=== PATIENT | female | born 1950 | race Caucasian/White ===

== ENCOUNTER 2023-04-27 08:32 | Day surgery (SDC) | payer OTHER ==
[2023-04-27] VITALS (17 sets, daily range): BP systolic 89–134; BP diastolic 50–74
[~2023-04-27] VITALS: Ht 157.5 cm; Wt 81.3 kg
[2023-04-27] MEDS ORDERED: ELIQUIS5 M2 PO (09:21)
[2023-04-27] MEDS ORDERED: CARVEDILOL25 M9 PO (10:09)
[2023-04-27] MEDS ORDERED: SYNTHROID50 MC1 PO (10:10)
[2023-04-27] MEDS ORDERED: SPIRONOLACTONE25 MG PO (10:10)
[2023-04-27] MEDS ORDERED: SOAANZ20 M3 PO (10:11)
[2023-04-27] MEDS ORDERED: Amiodarone HCl200 MG PO (10:12)
[2023-04-27] MEDS ORDERED: LOSARTAN POTASS25 M2 PO (10:13)
--- NOTE | 2023-04-27 11:11 | NUR ---
History, Chart, Medications and Allergies reviewed before start of procedure. Pre-Op teaching done. Pt verbalizes understanding. Patient confirms NPO status and agrees with scheduled surgery. Patient reports completing Chlorhexadine shower X2 prior to admission to hospital. Surgical site prepped with 2% Chlorhexidine cloth wipe. Lungs clear T/O to Auscultation. Patient States Post-Procedure ride home has been arranged.
--- NOTE | 2023-04-27 11:57 | NUR ---
04/27/23 1157 Katya Warren SPINAL NERVE BLOCK COMPLETED IN THE OR BEFORE INTUBATION BY DR. PANG PT TOLERATED WELL.
--- NOTE | 2023-04-27 18:42 | NUR ---
SHIFT SUMMARY S/P L TKA, DRESSING CDI, POLAR JOSE ON. PT A&OX4, VSS/RA, N&V TREATED WITH ZOFRAN, DENIES PAIN, VOIDING, AMB 1 PP MOD ASSIST WITH FWW/GB, AT BEDSIDE. WILL REPORT TO ONCOMING NOC RN.
[2023-04-28 00:21] VITALS: BP 104/58
[2023-04-28 02:48] VITALS: BP 120/61
--- NOTE | 2023-04-28 04:24 | NUR ---
SHIFT SUMMARY POD1 L TKA PT A&O X4, BREANA WRAP TO L KNEE C/D/I. PT REPORTED DIZZINESS AT START OF SHIFT, ALONG WITH NAUSEA. MEDICATED PER EMAR. DENIES ANY PAIN. 2 PERSON ASST WITH FWW BECAUSE OF DIZZINESS. PT ABLE TO SLEEP T/O NIGHT. TOLERATING PO INTAKE. VSS. NO OTHER CONCERNS AT THIS TIME. PLAN FOR DISCHARGE TODAY. CALL LIGHT WITHIN REACH.
[2023-04-28 04:42] LABS: Bun/Creatinine Ratio 16.6 (12.0-20.0); Calcium, Blood 8.6 mg/dL (8.5-10.1); Creatinine, Blood 1.57 mg/dL (0.40-1.00); Potassium, Blood 4.4 mmol/L (3.5-5.5)
[2023-04-28 06:50] LABS: BASOPHILS ABSOLUTE AUTO 0.06 K/mm3 (0.00-0.23); BASOPHILS PERCENT AUTO 1 % (0-2); EOSINOPHILS ABSOLUTE AUTO 0.08 K/mm3 (0.00-0.68); EOSINOPHILS PERCENT AUTO 1 % (0-6); Hematocrit 35.2 % (33.0-51.0); Hemoglobin 11.4 g/dL (11.5-16.0); IMMATURE GRAN ABSOLUTE AUTO 0.05 K/mm3 (0.00-0.10); IMMATURE GRAN PERCENT AUTO 0 % (0-1); LYMPHOCYTES ABSOLUTE AUTO 0.89 K/mm3 (0.84-5.20); LYMPHOCYTES PERCENT AUTO 7 % (21-46); MONOCYTES ABSOLUTE AUTO 1.18 K/mm3 (0.16-1.47); MONOCYTES PERCENT AUTO 9 % (4-13); Mean Corpuscular HGB 31.6 pg (26.0-34.0); Mean Corpuscular HGB Conc 32.4 g/dL (31.5-36.5); Mean Corpuscular Volume 98 fL (80-100); Mean Platelet Volume 11.9 fL (9.1-12.4); NEUTROPHILS ABSOLUTE AUTO 10.32 K/mm3 (1.96-9.15); NEUTROPHILS PERCENT AUTO 82 % (41-73); Platelet Count 197 K/mm3 (150-400); RDW Standard Deviation 43.7 fL (35.1-46.3); Red Blood Cell Count 3.61 M/mm3 (3.80-5.20); White Blood Cell Count 12.58 K/mm3 (4.00-11.30)
[2023-04-28 08:03] VITALS: BP 133/59
--- NOTE | 2023-04-28 09:30 | NUR ---
DISCHARGE SUMMARY PT A&OX4, VSS/RA, LATISHA PO, VOIDING, AMB SBA FWW GB, PAIN MANAGED, IV DC'D. DC INS PROVIDED, PT AND REP UNDERSTANDING. LEFT FLOOR VIA WC WITH BIT GATHERER TO GO HOME WITH , WITH ALL PERSONAL POSSESSIONS INCLUDING DC PACKET; PT REP HAVING PAIN MEDS AND ABX SCRIPTS FILLED AT HOME AND UNDERSTANDS PER SURGEON TO RESTART BLOOD THINNER TONIGHT.
== END 2023-04-28 10:01 | disposition home or self-care (01) ==
LOC: ORSCMMR 08:32 → ORD 11:15 → ORSCMMR 11:15 → SURS 14:21 → ORSCMMR 04-28 10:01
PROVIDERS: Orthopaedic Surgery
PROC: 0SRD0J9 Replacement of Left Knee Joint with Synthetic Substitute, Cemented, Open Approach (ICD-10-PCS; principal; 2023-04-27 11:15)
DX: M17.0 Bilateral primary osteoarthritis of knee (principal); I48.91 Unspecified atrial fibrillation; Z79.01 Long term (current) use of anticoagulants; Z79.899 Other long term (current) drug therapy; Z87.891 Personal history of nicotine dependence
CPT/HCPCS: 36415; 73560-LT; 80048; 83735; 85025; 97110; 97116; 97162; A9270; C1713; C1776; J0171; J0690; J0735; J0780; J1885; J2250; J2371; J2405; J2704; J2795; J3370; J7120

== ENCOUNTER 2023-08-24 07:39 | Day surgery (SDC) | payer OTHER ==
[~2023-08-24] VITALS: Ht 157.5 cm; Wt 76.6 kg
[2023-08-24] VITALS (16 sets, daily range): BP systolic 122–158; BP diastolic 66–86
[~2023-08-24 07:39] MED LIST: AMLO5 PO; Amiodarone HCl200 MG PO; CARVEDILOL25 M9 PO; Carvedilol12.5 MG PO; ELIQUIS5 M2 PO; LEVOTHYROXINE13 MCG; LOSARTAN POTASS25 M2 PO; SOAANZ20 M3 PO; SPIR25 PO; SPIRONOLACTONE25 MG PO; SYNTHROID50 MC1 PO; TORS10 PO
--- NOTE | 2023-08-24 09:41 | NUR ---
History, Chart, Medications and Allergies reviewed before start of procedure. Ambulatory in Day Surgery. Pre-Op teaching done. Pt verbalizes understanding. Patient confirms NPO status and agrees with scheduled surgery. Patient reports completing Chlorhexadine shower X2 prior to admission to hospital. Surgical site prepped with 2% Chlorhexidine cloth wipe. Lungs clear T/O to Auscultation. Patient States Post-Procedure ride home has been arranged.
--- NOTE | 2023-08-24 14:01 | NUR ---
ARRIVAL TO SURGICAL UNIT VIA HOSPITAL BED. ALERT & PLEASANT. ASSESSMENT CHARTED. SPINAL MANAGING PAIN & ABLE TO WIGGLE TOES & PUMP ANKLES BUT UNABLE TO LIFT LEGS. DENEIS N/V. SNACKS & DRINKS GIVEN.
--- NOTE | 2023-08-24 16:09 | NUR ---
PT WOKE UP TO GET READY FOR THERAPY & PT REPORTED SHE WAS TOO TIRED TO WORK w/ THERAPY.
--- NOTE | 2023-08-24 19:50 | NUR ---
SHIFT SUMMARY PT HAS BEEN VERY DROWSY THIS AFTERNOON. AWAKENS EASILY BUT DECLINES OOB. IS PLEASANT & KIND. NO VOID, BUT BLADDER SCAN LOW. PAIN WELL MANAGED.
[2023-08-25 00:07] VITALS: BP 178/85
[2023-08-25 04:51] VITALS: BP 147/82
[2023-08-25 05:30] LABS: BASOPHILS ABSOLUTE AUTO 0.03 K/mm3 (0.00-0.23); BASOPHILS PERCENT AUTO 0 % (0-2); EOSINOPHILS PERCENT AUTO 0 % (0-6); Hemoglobin 12.8 g/dL (11.5-16.0); IMMATURE GRAN ABSOLUTE AUTO 0.14 K/mm3 (0.00-0.10); IMMATURE GRAN PERCENT AUTO 1 % (0-1); LYMPHOCYTES ABSOLUTE AUTO 1.42 K/mm3 (0.84-5.20); LYMPHOCYTES PERCENT AUTO 7 % (21-46); MONOCYTES ABSOLUTE AUTO 1.33 K/mm3 (0.16-1.47); MONOCYTES PERCENT AUTO 7 % (4-13); Mean Corpuscular HGB 29.4 pg (26.0-34.0); Mean Corpuscular HGB Conc 32.8 g/dL (31.5-36.5); Mean Corpuscular Volume 90 fL (80-100); Mean Platelet Volume 10.9 fL (9.1-12.4); NEUTROPHILS ABSOLUTE AUTO 16.85 K/mm3 (1.96-9.15); NEUTROPHILS PERCENT AUTO 85 % (41-73); Platelet Count 288 K/mm3 (150-400); RDW Coefficient Variation 13.8 % (11.7-14.2); RDW Standard Deviation 45.1 fL (35.1-46.3); Red Blood Cell Count 4.35 M/mm3 (3.80-5.20); White Blood Cell Count 19.77 K/mm3 (4.00-11.30)
[2023-08-25 06:01] LABS: Bun/Creatinine Ratio 17.4 (12.0-20.0); Calcium, Blood 9.1 mg/dL (8.5-10.1); Creatinine, Blood 1.78 mg/dL (0.40-1.00); Magnesium, Blood 2.4 mg/dL (1.6-2.4); Potassium, Blood 4.6 mmol/L (3.5-5.5)
--- NOTE | 2023-08-25 06:37 | NUR ---
SHIFT SUMMARY POD1 R TKA. DRESSING IS C/D/I. VSS. PT SLEPT WELL T/O THE NIGHT. UNSUCCESSFUL AMBULATION TO BSC THIS AM TO ATTEMPT TO VOID, PT EXERIENCED DIZZINESS AND NAUSEA. 3P TRANSFER BACK TO BED FOR SAFETY. BLADER SCAN SHOWS ABOUT 300 THIS AM, IV FLUIDS INFUSED T/O THE NIGHT. MEDICATED FOR PAIN WITH SCHEDULED AND PRN'S WITH TOLLERABLE RESULTS. TOLLERATING PO INTAKE. PLAN FOR PT TO VOID TODAY AND WORK WITH PHYSICAL THERAPY.
[2023-08-25 07:24] VITALS: BP 137/70
--- NOTE | 2023-08-25 10:50 | NUR ---
DISCHARGE SUMMARY POD1 R TKA, A/OX4, VSS, TOLERATING PO, PAIN WELL MANAGED, VOIDING, AMBULATING, CLEARED THERAPY. DISCUSSED DISCHARGE INFORMATION INCLUDING HOME CARE, MEDICATIONS, AND FOLLOW UP APPPOINTMENTS. NO QUESTIONS AT THIS TIME. IV ACCESS REMOVED JUST PRIOR TO DISCHARGE, DRESSING CHANGED AT THE BEDSIDE BY ORTHO, ADDITIONAL AQUACELL DRESSINGS PROVIDED TO BE CHANGED DIRECTED. DRESSING C/D/I AT TIME OF DEPARTURE. ESCORTED OUT VIA WC TO PRIVATE AUTO TO GO HOME.
== END 2023-08-25 10:38 | disposition home or self-care (01) ==
LOC: ORSCMMR 07:39 → ORD 10:45 → SURS 13:55 → ORD 14:00 → ORSCMMR 08-25 10:38
PROVIDERS: Orthopaedic Surgery
PROC: 0SRC0J9 Replacement of Right Knee Joint with Synthetic Substitute, Cemented, Open Approach (ICD-10-PCS; principal; 2023-08-24 10:45)
DX: M17.11 Unilateral primary osteoarthritis, right knee (principal); Z96.652 Presence of left artificial knee joint; I48.91 Unspecified atrial fibrillation; Z79.01 Long term (current) use of anticoagulants; Z79.899 Other long term (current) drug therapy; Z87.891 Personal history of nicotine dependence
CPT/HCPCS: 36415; 73560-RT; 80048; 83735; 85025; 97110; 97116; 97162; A9270; C1713; C1776; J0171; J0690; J0735; J1170; J1885; J2405; J2704; J2795; J3010; J3370; J7120

== ENCOUNTER 2023-12-21 10:11 | Inpatient (IN) | payer OTHER ==
[~2023-12-21] VITALS: Ht 160 cm; Wt 76.7 kg
[2023-12-21] VITALS (10 sets, daily range): BP systolic 114–138; BP diastolic 53–82
[2023-12-21 11:08] LABS: BASOPHILS ABSOLUTE AUTO 0.06 K/mm3 (0.00-0.23); BASOPHILS PERCENT AUTO 1 % (0-2); EOSINOPHILS PERCENT AUTO 1 % (0-6); IMMATURE GRAN ABSOLUTE AUTO 0.04 K/mm3 (0.00-0.10); IMMATURE GRAN PERCENT AUTO 1 % (0-1); LYMPHOCYTES ABSOLUTE AUTO 1.37 K/mm3 (0.84-5.20); LYMPHOCYTES PERCENT AUTO 19 % (21-46); MONOCYTES ABSOLUTE AUTO 0.83 K/mm3 (0.16-1.47); MONOCYTES PERCENT AUTO 11 % (4-13); Mean Corpuscular HGB 20.5 pg (26.0-34.0); Mean Corpuscular HGB Conc 27.8 g/dL (31.5-36.5); Mean Corpuscular Volume 74 fL (80-100); Mean Platelet Volume 11.6 fL (9.1-12.4); NEUTROPHILS ABSOLUTE AUTO 4.94 K/mm3 (1.96-9.15); NEUTROPHILS PERCENT AUTO 67 % (41-73); Platelet Count 293 K/mm3 (150-400); RDW Coefficient Variation 19.4 % (11.7-14.2); RDW Standard Deviation 51.8 fL (35.1-46.3); White Blood Cell Count 7.34 K/mm3 (4.00-11.30)
[2023-12-21 11:18] LABS: Hematocrit 16.2 % (33.0-51.0); Hemoglobin 4.5 g/dL (11.5-16.0)
[2023-12-21 11:25] LABS: Albumin, Blood 3.3 g/dL (3.4-5.0); Albumin/Globulin Ratio 1.1 (0.8-1.8); Bilirubin, Total 0.4 mg/dL (0.1-1.0); Bun/Creatinine Ratio 19.7 (12.0-20.0); Creatinine, Blood 2.23 mg/dL (0.40-1.00); Globulin, Blood 3.1 g/dL (2.2-4.0); Potassium, Blood 4.4 mmol/L (3.5-5.5); Total Protein, Blood 6.4 g/dL (6.4-8.2)
[2023-12-21] MEDS ORDERED: NS 1,000 ML IV ONE (12:42)
[2023-12-21] MEDS ORDERED: Ondansetron 4 MG TAB PO PRN (14:30)
[2023-12-21] MEDS ORDERED: Acetaminophen 325 MG TABLET PO PRN (14:30)
[2023-12-21] MEDS ORDERED: Ondansetron HCl 2 MG / ML 2ML Vial IV PRN (14:35)
--- NOTE | 2023-12-21 19:50 | NUR ---
SHIFT SUMMARY- PT ADMITTED THROUGH THE ED. PT HGB WAS 4.5 AT THE TIME SHE WAS ADMITTED. 3 UNITS OF PRBC'S WERE ORDERED. PT WAS RUNNING THE SECOND UNIT AT THE TIME SHE ARRIVED ON MED FLOOR. BLOOD SLIP FOR THE THIRD UNIT WAS PASSED TO NIGHT RN AT THE TIME OF BEDSIDE REPORT WHEN THE PT SECOND UNIT COMPLETED. PT CRIES OUT "OH MIRA; HELP ME MIRA; MIAR" PT SPOUSE MIRA LEFT AFTER THE PT ARRIVED ON MEDICAL FLOOR AND THE PT STATED SHE WAS NOT ABLE TO GIVE HER Hx. PT IN BED, CALL LIGHT IN REACH NO S&S OF DISTRESS NOTED AT THE TIME OF BEDSIDE REPORT. PT SEEMS VERY ANXIOUS SPOUSE MIRA SAYS SHE "HAS BEEN VERY WHINEY, SINCE SHE GOT SICK LIKE THIS." REPORT COMPLETED WITH THE NIGHT RN CHAPITO.
[2023-12-21] MEDS ORDERED: NS 500 ML IV ONE (19:55)
[2023-12-21] MEDS ORDERED: NS 500 ML IV SCH (20:05)
[2023-12-22] VITALS (7 sets, daily range): BP systolic 127–162; BP diastolic 60–79
[2023-12-22 05:11] LABS: BASOPHILS ABSOLUTE AUTO 0.07 K/mm3 (0.00-0.23); BASOPHILS PERCENT AUTO 1 % (0-2); EOSINOPHILS ABSOLUTE AUTO 0.08 K/mm3 (0.00-0.68); EOSINOPHILS PERCENT AUTO 1 % (0-6); Hematocrit 25.4 % (33.0-51.0); Hemoglobin 7.8 g/dL (11.5-16.0); IMMATURE GRAN ABSOLUTE AUTO 0.13 K/mm3 (0.00-0.10); IMMATURE GRAN PERCENT AUTO 1 % (0-1); LYMPHOCYTES ABSOLUTE AUTO 1.08 K/mm3 (0.84-5.20); LYMPHOCYTES PERCENT AUTO 10 % (21-46); MONOCYTES ABSOLUTE AUTO 1.18 K/mm3 (0.16-1.47); MONOCYTES PERCENT AUTO 11 % (4-13); Mean Corpuscular HGB Conc 30.7 g/dL (31.5-36.5); Mean Corpuscular Volume 78 fL (80-100); Mean Platelet Volume 10.8 fL (9.1-12.4); NEUTROPHILS ABSOLUTE AUTO 8.72 K/mm3 (1.96-9.15); NEUTROPHILS PERCENT AUTO 77 % (41-73); Platelet Count 296 K/mm3 (150-400); RDW Coefficient Variation 20.1 % (11.7-14.2); RDW Standard Deviation 57.1 fL (35.1-46.3); Red Blood Cell Count 3.25 M/mm3 (3.80-5.20); White Blood Cell Count 11.26 K/mm3 (4.00-11.30)
[2023-12-22 05:51] LABS: Albumin, Blood 3.3 g/dL (3.4-5.0); Albumin/Globulin Ratio 1.1 (0.8-1.8); Bilirubin, Total 1.6 mg/dL (0.1-1.0); Bun/Creatinine Ratio 20.6 (12.0-20.0); Calcium, Blood 8.9 mg/dL (8.5-10.1); Creatinine, Blood 1.8 mg/dL (0.40-1.00); Globulin, Blood 3.1 g/dL (2.2-4.0); Magnesium, Blood 2.4 mg/dL (1.6-2.4); Potassium, Blood 3.9 mmol/L (3.5-5.5); Total Protein, Blood 6.4 g/dL (6.4-8.2)
--- NOTE | 2023-12-22 06:10 | NUR ---
SHIFT SUMMARY: Pt is admitted for severe anemia and is a full code. Alert and able to make needs known. ADLs have been one person but had not gotten out of bed this shift. States she has generalized pain but when offered something for it she declines. Was given 1u of blood to finish a total of 3u during this shift. No adverse reactions noted. Some nausea was stated towards the end of of shift but declined zofran. EMPLOYEE BENEFITS INSURANCE AGENT reported that SPO2 was down to 88 on RA. it was reported to an RN to which the RN placed her on 1lpm via NC which brought the SPO@ up to 91-92 and maintained. RN informed this LN of changes. When this LN assessed lungs they were clear but diminished. She did state that she was a little short of breath at the time of placement but it has been helpful.
[2023-12-22] MEDS ORDERED: Lisinopril2.5 MG PO (07:49)
[2023-12-22] MEDS ORDERED: ASPI81CH PO (07:49)
[2023-12-22] MEDS ORDERED: Percocet 5-3251 EACH PO (07:50)
[2023-12-22] MEDS ORDERED: Enoxaparin 30 MG/0.3 ML SYR SC SCH (09:00)
--- NOTE | 2023-12-22 12:21 | NUR ---
CALLED DR VENTURA- PT IS ON THE COMMODE DRY HEAVING, SHE HAS THE SHAKES, SHE IS SWEATY, SHE IS MODERATELY ANXIOUS, AND SHE JUMP SCARED WHEN STAFF WERE PERFORMING A BLADDER SCAN. HER CIWA SCORE IS 18. PER HER SHE HAS NOT HAD ALKOHOL IN 3-4 DAYS. CALLED AND SPOKE TO DR VENTURA HE IS AWARE AND IS PUTTING IN CIWA PROTOCOL.
[2023-12-22] MEDS ORDERED: LORazepam 2 MG/ML 1ML Injection IV PRN ×3 (12:25)
[2023-12-22] MEDS ORDERED: Magnesium Sulf 2 GM/Water 50ML 50 ML IV PRN (12:40)
[2023-12-22 12:45] LABS: Source, Urine Clean Catch
[2023-12-22 12:49] LABS: Bilirubin, Urine Neg (Neg); Blood, Urine 3+ (Neg); Glucose Qualitative, Urine Neg (Neg); Ketones, Urine Neg (Neg); Leukocyte Esterase, Urine 3+ (Neg); Nitrite, Urine Pos (Neg); Protein, Urine 2+ (Neg); Urobilinogen, Urine NORM (Normal)
[2023-12-22 12:57] LABS: Appearance, Urine Hazy (Clear); Color, Urine Pale Yellow (P-Yellow)
[2023-12-22 12:58] LABS: Bacteria Many /hpf; Squamous Epithelial Cells Mod /hpf (Few); White Blood Cells, Urine TNTC /hpf (0-5)
[2023-12-22 12:59] LABS: Yeast/Fungi Urine Few /hpf
[2023-12-22] MEDS ORDERED: Thiamine HCl 100 MG in NS 50 ML IV SCH (13:00)
[2023-12-22] MEDS ORDERED: Folic Acid 1 MG in NS 50 ML IV SCH (13:00)
[2023-12-22] MEDS ORDERED: BusPIRone HCl 5 MG Tab PO SCH (14:00)
--- NOTE | 2023-12-22 14:14 | NUR ---
CALLED DR VENTURA- PT HAS A NEW ORDER FOR BUSBAR THAT STARTS NOW, HOWEVER SHE RECIEVED IV ATIVAN FOR A CIWA SCORE OF 18. CHECKED TO SEE IF THE DR STILL WANTS TO PROCEED AND PLACE THE PT ON BUSBAR. RECIEVED ORDER TO DC BUSBAR AT THIS TIME.
--- NOTE | 2023-12-22 17:52 | NUR ---
"Spiritual Care Visit | Pt. Request This leaf conditioner helper arrived just as the Pts. dinner is served. Spouse is at bedside. Pt. confirmed that she had a visit from a Eucharistic volunteer earlier in the day. Pt. displays evidence of being weak and feeling as if she cannot eat. Prayed with Pt. Pt. verbalized gratitude for the brief visit but verbalized she was not up to much conversation. Pt. welcomed this leaf conditioner helper to return tomorrow."
--- NOTE | 2023-12-22 18:12 | NUR ---
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 SHE STATES SHE ONLY HAS 1-2 DRINKS A DAY [address] VENTURA EARLIER TODAY THE PT WAS EXHIBITING SIGNS OF WIITHDRAWL. RECIEVED CIWA ORDER SETS. PT MEDICATED FOR CIWA OF 18 WITH 1MG IV ATIVAN AND THE PT CIWA REDUCED TO 4. PT HAS BEEN AMPING UP A BIT THIS EVENING. WILL COMPLETE AN ADDITIONAL CIW NOW TO DETERMINE NEED FOR MEDS. PT IN BED, CALL LIGHT IN REACH, SPOUSE AT THE BEDSIDE.
[2023-12-22] MEDS ORDERED: OxyCODONE 5 mg/Acetamin 325 mg TABLET PO PRN (19:40)
[2023-12-22] MEDS ORDERED: Apixaban 5 MG Tab PO SCH (21:00)
[2023-12-22] MEDS ORDERED: CefTRIAXone Sodium 1,000 MG in NS 100 ML IV SCH (21:00)
[2023-12-22] MEDS ORDERED: Carvedilol 25 MG Tab PO SCH (21:00)
[2023-12-22] MEDS ORDERED: Aspirin 81 MG Chew PO SCH (21:00)
--- NOTE | 2023-12-23 05:06 | NUR ---
END OF SHIFT SUMMARY PT ANXIOUS AND FORGETFUL AT TIMES, OTHERWISE A&OX4. CIWA SCORE OF 4. URINARY FREQUENCY, UP TO BSC WITH SBA OFTEN. DENIES PAIN OR DYSURIA. DESATS ON RA WITH EXERTION AND ANXIETY, REMAINS ON 2L VIA NC. TEMP MAX 100.1.
[2023-12-23 05:34] VITALS: BP 154/71
[2023-12-23] MEDS ORDERED: Levothyroxine Sodium 0.05 MG Tab PO SCH (06:00)
[2023-12-23 07:18] VITALS: BP 130/64
--- NOTE | 2023-12-23 08:42 | NUR ---
MD CALL DR FERNANDES CALLED TO QUESTION LOVENOX,ELOQUIS AND ASA. TELEPHONE ORDER TO DISCONTINUE ASA AND LOVENOX. READ BACK DONE AND ORDER ENTERED INTO [employer].
[2023-12-23] MEDS ORDERED: Lisinopril 5 MG Tab PO SCH (09:00)
[2023-12-23] MEDS ORDERED: Spironolactone 25 MG Tab PO SCH (09:00)
[2023-12-23] MEDS ORDERED: Amiodarone HCl 200 MG Tab PO SCH (09:00)
[2023-12-23] MEDS ORDERED: Spironolactone 12.5 MG TAB PO SCH (09:00)
[2023-12-23] MEDS ORDERED: Torsemide 10 MG TAB PO SCH (09:00)
--- NOTE | 2023-12-23 09:52 | NUR ---
Pt. is sitting up in a chair and welcomes my visit. Pt. is pleasant. Spouse is at bedside. Facilitated a life review. Listen with interest and empathy. Pt. displayed evidence of engagement and awareness. Pt. verbalized that she had lost her son this past fall. Pastoral mitochondrial disorders counselor and grief support is given. Prayed with Pt. Pt. verbalized gratitude for the spiritual care visit.
[2023-12-23 14:56] VITALS: BP 105/47
--- NOTE | 2023-12-23 17:09 | NUR ---
SHIFT SUMMARY MS ROBERTA GRAMAJO IS ABLE TO ANSWER ORIENTATION QUESTIONS, SOME FORGETFULNESS EVIDENT IN CONVERSATION THROUGHOUT THE DAY. SHE C/O FEELING VERY TIRED. 1 PERSON ASSISTANCE UP TO THE BATHROOM AND AMBULATED IN THE HALLS WITH PHYSICAL THERAPIST TODAY. NO C/O PAIN TODAY, DENIED ANY NAUSEA. POOR APPETITE. HER HAS VISITED WITH HER FOR MOST OF THE DAY. BED AND CHAIR ALARMS IN USE. CALL LIGHT IN REACH.
[2023-12-23 17:45] VITALS: BP 93/47
[2023-12-23 20:01] VITALS: BP 112/54
[2023-12-24] VITALS (11 sets, daily range): BP systolic 86–125; BP diastolic 40–66
[2023-12-24 05:33] LABS: BASOPHILS ABSOLUTE AUTO 0.07 K/mm3 (0.00-0.23); BASOPHILS PERCENT AUTO 1 % (0-2); EOSINOPHILS ABSOLUTE AUTO 0.22 K/mm3 (0.00-0.68); EOSINOPHILS PERCENT AUTO 2 % (0-6); Hematocrit 22.5 % (33.0-51.0); Hemoglobin 6.6 g/dL (11.5-16.0); IMMATURE GRAN ABSOLUTE AUTO 0.05 K/mm3 (0.00-0.10); IMMATURE GRAN PERCENT AUTO 1 % (0-1); LYMPHOCYTES ABSOLUTE AUTO 1.53 K/mm3 (0.84-5.20); LYMPHOCYTES PERCENT AUTO 15 % (21-46); MONOCYTES ABSOLUTE AUTO 1.07 K/mm3 (0.16-1.47); MONOCYTES PERCENT AUTO 11 % (4-13); Mean Corpuscular HGB 23.4 pg (26.0-34.0); Mean Corpuscular HGB Conc 29.3 g/dL (31.5-36.5); Mean Corpuscular Volume 80 fL (80-100); Mean Platelet Volume 10.7 fL (9.1-12.4); NEUTROPHILS ABSOLUTE AUTO 6.99 K/mm3 (1.96-9.15); NEUTROPHILS PERCENT AUTO 70 % (41-73); Platelet Count 304 K/mm3 (150-400); RDW Coefficient Variation 21.9 % (11.7-14.2); RDW Standard Deviation 62.8 fL (35.1-46.3); Red Blood Cell Count 2.82 M/mm3 (3.80-5.20); White Blood Cell Count 9.93 K/mm3 (4.00-11.30)
[2023-12-24 06:23] LABS: Albumin, Blood 2.9 g/dL (3.4-5.0); Bilirubin, Total 0.5 mg/dL (0.1-1.0); Bun/Creatinine Ratio 16.1 (12.0-20.0); Calcium, Blood 8.7 mg/dL (8.5-10.1); Creatinine, Blood 1.55 mg/dL (0.40-1.00); Potassium, Blood 4.6 mmol/L (3.5-5.5); Total Protein, Blood 5.9 g/dL (6.4-8.2)
--- NOTE | 2023-12-24 07:36 | NUR ---
END OF SHIFT SUMMARY PT A&OX4, FORGETFUL AND ANXIOUS AT TIMES. WEAKNESS IMPROVING, PT AMBULATING WELL TO BR WITH SBA AND FWW. OXYGEN SAT MAINTAINING >92 ON RA, DENIES SOB. HEMOGLOBIN 6.6 THIS AM, ORDERS RECD FOR 1U PRBC.
[2023-12-24] MEDS ORDERED: Thiamine HCl 100 MG in NS 50 ML IV SCH (09:00)
[2023-12-24] MEDS ORDERED: Folic Acid 1 MG in NS 50 ML IV SCH (09:00)
[2023-12-24 09:25] LABS: RETIC HGB EQUIVALENT 20.4 pg (28.20-36.60); RETICULOCYTE ABSOLUTE 0.996 M/mm3 (0.0200-0.1100); RETICULOCYTE COUNT PERCENT 3.56 % (0.50-2.50)
[2023-12-24] MEDS ORDERED: Pantoprazole Sodium 40 MG Injection IV SCH (16:30)
--- NOTE | 2023-12-24 17:20 | NUR ---
SHIFT SUMMARY MS ROBERTA GRAMAJO HAD HYPOTENSION AFTER [address] FERNANDES NOTIFIED AND PARAMETERS TO HOLD MEDICATIONS IF SBP LESS THAN 110 ADDED TO MAR. 1 UNIT PRBC GIVEN THIS AM AND IMPROVEMENT IN BP NOTED. PT C/O DYSURIA. SHE HAD BM WHICH WAS LOOKED REGULAR BROWN IN COLOR AND NORMAL CONSISTANCY. NO NAUSEA. UP TO BATHROOM FREQUENTLY. SAT UP IN CHAIR A FEW TIMES AND WALKED WELL IN THE HALLWAYS WITH MINIMAL SHORTNESS OF BREATH AFTER AROUND 150FT. 1 PERSON S/B ASSIST, GAIT BELT AND WALKER USED. NOW IN CHAIR, CALL LIGHT IN REACH AND CHAIR ALARM ON.
[2023-12-25 00:01] LABS: Source, Urine Clean Catch
[2023-12-25 00:04] LABS: Bilirubin, Urine Neg (Neg); Blood, Urine 1+ (Neg); Glucose Qualitative, Urine Neg (Neg); Ketones, Urine Neg (Neg); Leukocyte Esterase, Urine 3+ (Neg); Nitrite, Urine Neg (Neg); Protein, Urine 1+ (Neg); Specific Gravity, Urine 1.015 (1.003-1.022); Urobilinogen, Urine NORM (Normal)
[2023-12-25 00:19] LABS: Appearance, Urine Hazy (Clear); Color, Urine Yellow (P-Yellow)
[2023-12-25 00:21] LABS: Bacteria Mod /hpf; Squamous Epithelial Cells Few /hpf (Few); White Blood Cells, Urine 50-100 /hpf (0-5)
[2023-12-25 05:47] LABS: BASOPHILS PERCENT AUTO 1 % (0-2); EOSINOPHILS ABSOLUTE AUTO 0.37 K/mm3 (0.00-0.68); EOSINOPHILS PERCENT AUTO 4 % (0-6); Hemoglobin 7.7 g/dL (11.5-16.0); IMMATURE GRAN ABSOLUTE AUTO 0.04 K/mm3 (0.00-0.10); IMMATURE GRAN PERCENT AUTO 0 % (0-1); LYMPHOCYTES ABSOLUTE AUTO 1.53 K/mm3 (0.84-5.20); LYMPHOCYTES PERCENT AUTO 16 % (21-46); MONOCYTES ABSOLUTE AUTO 0.95 K/mm3 (0.16-1.47); MONOCYTES PERCENT AUTO 10 % (4-13); Mean Corpuscular HGB 23.7 pg (26.0-34.0); Mean Corpuscular HGB Conc 29.6 g/dL (31.5-36.5); Mean Corpuscular Volume 80 fL (80-100); Mean Platelet Volume 10.9 fL (9.1-12.4); NEUTROPHILS ABSOLUTE AUTO 6.63 K/mm3 (1.96-9.15); NEUTROPHILS PERCENT AUTO 69 % (41-73); Platelet Count 315 K/mm3 (150-400); RDW Coefficient Variation 22.3 % (11.7-14.2); RDW Standard Deviation 63.8 fL (35.1-46.3); Red Blood Cell Count 3.25 M/mm3 (3.80-5.20); White Blood Cell Count 9.62 K/mm3 (4.00-11.30)
[2023-12-25 06:23] LABS: Albumin, Blood 3.1 g/dL (3.4-5.0); Bilirubin, Total 0.6 mg/dL (0.1-1.0); Bun/Creatinine Ratio 14.3 (12.0-20.0); Creatinine, Blood 1.4 mg/dL (0.40-1.00); Globulin, Blood 3.2 g/dL (2.2-4.0); Potassium, Blood 4.7 mmol/L (3.5-5.5); Total Protein, Blood 6.3 g/dL (6.4-8.2)
[2023-12-25 07:31] VITALS: BP 142/59
[2023-12-25 09:15] VITALS: BP 109/56
[2023-12-25 11:33] LABS: Percent Saturation 3.9 % (15.0-50.0)
[2023-12-25 15:23] VITALS: BP 123/58
--- NOTE | 2023-12-25 17:21 | NUR ---
SHIFT SUMMARY MS ROBERTA VELASQUEZ HAS BEEN STEADY WALKING AROUND THE ROOM AND TO THE BATHROOM WITH A FWW TODAY. SHE DENIES PAIN. THIS AM BLOOD PRESSURE DROPPED FROM 142/59 TO 109/56 AFTER COREG 25MG. LISINOPRIL, TORESEMIDE AND SPIRONLACTONE HELD PER SBP PARAMETERS AND DR FERNANDES INFORMED WHO MADE A DOSE CHANGE. SHE DENIES ANY DIZZYNESS OR NAUSEA. CONTINUES TO HAVE DYSURIA. SUPPORTIVE AT BEDSIDE MOST OF THE DAY. IN CHAIR, CALL LIGHT IN REACH.
[2023-12-25 17:40] VITALS: BP 117/66
[2023-12-25] MEDS ORDERED: Carvedilol 6.25 MG Tab PO SCH (17:45)
[2023-12-25] MEDS ORDERED: Sod Ferric Gluc Complx/Sucrose 125 MG in NS 100 ML IV SCH (18:00)
[2023-12-25 19:52] VITALS: BP 137/70
[2023-12-26 02:37] VITALS: BP 141/68
[2023-12-26 05:25] LABS: BASOPHILS ABSOLUTE AUTO 0.08 K/mm3 (0.00-0.23); BASOPHILS PERCENT AUTO 1 % (0-2); EOSINOPHILS ABSOLUTE AUTO 0.37 K/mm3 (0.00-0.68); EOSINOPHILS PERCENT AUTO 5 % (0-6); Hematocrit 25.7 % (33.0-51.0); Hemoglobin 7.6 g/dL (11.5-16.0); IMMATURE GRAN ABSOLUTE AUTO 0.06 K/mm3 (0.00-0.10); IMMATURE GRAN PERCENT AUTO 1 % (0-1); LYMPHOCYTES ABSOLUTE AUTO 1.24 K/mm3 (0.84-5.20); LYMPHOCYTES PERCENT AUTO 16 % (21-46); MONOCYTES ABSOLUTE AUTO 0.74 K/mm3 (0.16-1.47); MONOCYTES PERCENT AUTO 9 % (4-13); Mean Corpuscular HGB Conc 29.6 g/dL (31.5-36.5); Mean Corpuscular Volume 81 fL (80-100); Mean Platelet Volume 10.5 fL (9.1-12.4); NEUTROPHILS PERCENT AUTO 69 % (41-73); Platelet Count 300 K/mm3 (150-400); RDW Coefficient Variation 22.4 % (11.7-14.2); RDW Standard Deviation 65.7 fL (35.1-46.3); Red Blood Cell Count 3.17 M/mm3 (3.80-5.20); White Blood Cell Count 7.99 K/mm3 (4.00-11.30)
[2023-12-26 05:57] LABS: Albumin, Blood 2.9 g/dL (3.4-5.0); Albumin/Globulin Ratio 0.9 (0.8-1.8); Bilirubin, Total 0.5 mg/dL (0.1-1.0); Bun/Creatinine Ratio 12.1 (12.0-20.0); Calcium, Blood 9.2 mg/dL (8.5-10.1); Creatinine, Blood 1.24 mg/dL (0.40-1.00); Globulin, Blood 3.1 g/dL (2.2-4.0); Potassium, Blood 4.5 mmol/L (3.5-5.5)
[2023-12-26] MEDS ORDERED: Metoprolol Succinate 50 MG TABCR PO SCH (07:00)
[2023-12-26 07:12] VITALS: BP 131/53
[2023-12-26] MEDS ORDERED: METO50ER PO (11:51)
[2023-12-26] MEDS ORDERED: SOAANZ60 M1 PO (11:51)
[2023-12-26] MEDS ORDERED: CEPH500 PO (11:51)
[2023-12-26] MEDS ORDERED: PANT40 PO (11:52)
--- NOTE | 2023-12-26 12:50 | NUR ---
DISCHARGE NOTE- PT AND SPOUSE WERE GIVEN VERBAL AND WRITTEN DISCHARGE INSTRUCTIONS AND ACKNOWLEDGED UNDERSTANDING OF THEM. IV DC'D PRIOR TO DISCHARGE. PT WILL BE ESCORTED OUT BY THE PREFABRICATED HOUSES TRIMMER VIA WC ONCE DRESSED. NO S&S OF DISTRESS NOTED.
== END 2023-12-26 13:03 | disposition home or self-care (01) | DRG 811 ==
LOC: ER 10:11 → MEDS 10:12
PROVIDERS: Emergency Medicine; Internal Medicine; ADMIT Internal Medicine
PROC: 30233N1 Transfusion of Nonautologous Red Blood Cells into Peripheral Vein, Percutaneous Approach (ICD-10-PCS; principal; 2023-12-21)
PROC: HZ2ZZZZ Detoxification Services for Substance Abuse Treatment (ICD-10-PCS; 2023-12-22)
PROC: 3E03329 Introduction of Other Anti-infective into Peripheral Vein, Percutaneous Approach (ICD-10-PCS; 2023-12-22)
DX: D62 Acute posthemorrhagic anemia (principal); A41.9 Sepsis, unspecified organism; R65.20 Severe sepsis without septic shock; I13.0 Hypertensive heart and chronic kidney disease with heart failure and stage 1 through stage 4 chronic kidney disease, or unspecified chronic kidney disease; I50.22 Chronic systolic (congestive) heart failure; N17.9 Acute kidney failure, unspecified; N39.0 Urinary tract infection, site not specified; F10.139 Alcohol abuse with withdrawal, unspecified; G47.33 Obstructive sleep apnea (adult) (pediatric); F10.10 Alcohol abuse, uncomplicated; I27.22 Pulmonary hypertension due to left heart disease; I08.1 Rheumatic disorders of both mitral and tricuspid valves; I48.0 Paroxysmal atrial fibrillation; D63.1 Anemia in chronic kidney disease; B96.20 Unspecified Escherichia coli [E. coli] as the cause of diseases classified elsewhere; N18.32 Chronic kidney disease, stage 3b; E03.9 Hypothyroidism, unspecified; Z96.653 Presence of artificial knee joint, bilateral; Z88.0 Allergy status to penicillin; Z79.01 Long term (current) use of anticoagulants; Z87.891 Personal history of nicotine dependence; Z79.890 Hormone replacement therapy
CPT/HCPCS: 36415; 36430; 71045; 76705; 80053; 81001; 82272; 82607; 82728; 82746; 83540; 83550; 83735; 83880; 84484; 85025; 85045; 85379; 86850; 86900; 86901; 86923; 87077; 87086; 87186; 93005; 93010; 96372; 96374; 96375; 97110; 97116; 97162; 97166; 97535; 99285-25; A9270; C9113; G0378; J0696; J1650; J2060; J2916; J3411; J7030; J7040; P9016

== ENCOUNTER 2024-02-06 07:43 | Day surgery (SDC) | payer OTHER ==
[~2024-02-06] VITALS: Ht 160 cm; Wt 69.3 kg
[~2024-02-06 07:43] MED LIST changes: +ASPI81CH PO; +CEPH500 PO; +Lisinopril2.5 MG PO; +METO50ER PO; +PANT40 PO; +Percocet 5-3251 EACH PO; +SOAANZ60 M1 PO
[2024-02-06] MEDS ORDERED: [UNRECOGNIZED DRUG - CODE] (08:10)
[2024-02-06] MEDS ORDERED: ELIQUIS5 M2 (08:10)
[2024-02-06] MEDS ORDERED: Lactated Ringer's 1,000 ML IV ONE ×2 (08:17→08:56)
[2024-02-06] MEDS ORDERED: propofoL 50 ML IV ONE (08:27)
[2024-02-06] MEDS ORDERED: Lidocaine HCl 4% 5 ML SDA ONE (08:58)
--- NOTE | 2024-02-06 09:38 | NUR ---
02/06/[address] GAVE THIS RN VERBAL ORDERS TO PULL LIDOCAINE 4% TO NUMB THE PT'S THROAT. DR. RAMIREZ STATED HE WILL ADMINISTER THE MEDICATION HIMSELF IN PRE-OP.
[2024-02-06 10:18] VITALS: BP 122/58
== END 2024-02-06 10:20 | disposition home or self-care (01) ==
LOC: ORSCSDS 07:43
PROVIDERS: Specialist
PROC: 0DB98ZX Excision of Duodenum, Via Natural or Artificial Opening Endoscopic, Diagnostic (ICD-10-PCS; principal; 2024-02-06 09:00)
PROC: 0DBK8ZX Excision of Ascending Colon, Via Natural or Artificial Opening Endoscopic, Diagnostic (ICD-10-PCS; principal; 2024-02-06 09:00)
DX: D50.9 Iron deficiency anemia, unspecified (principal); D12.2 Benign neoplasm of ascending colon; K44.9 Diaphragmatic hernia without obstruction or gangrene; K31.819 Angiodysplasia of stomach and duodenum without bleeding; K64.8 Other hemorrhoids; K64.4 Residual hemorrhoidal skin tags; K57.30 Diverticulosis of large intestine without perforation or abscess without bleeding; I12.9 Hypertensive chronic kidney disease with stage 1 through stage 4 chronic kidney disease, or unspecified chronic kidney disease; N18.9 Chronic kidney disease, unspecified; K21.9 Gastro-esophageal reflux disease without esophagitis; Z87.891 Personal history of nicotine dependence; E03.9 Hypothyroidism, unspecified; Z79.899 Other long term (current) drug therapy; Z79.01 Long term (current) use of anticoagulants
CPT/HCPCS: 88305; J2001; J2704; J7120